=== PATIENT | male | born 1955 | race Caucasian/White ===

== ENCOUNTER 2017-11-12 11:31 | Outpatient (REF) | payer MEDICAID, SELFPAY ==
[2017-11-12 20:51] LABS: TSH 1.35 uIU/mL (0.358-3.74)
== END 2017-11-12 11:32 ==
LOC: NCHCN 11:31
PROVIDERS: Visit Provider Physician Assistant Medical
DX: F32.9 Major depressive disorder, single episode, unspecified (principal)
CPT/HCPCS: 84443

== ENCOUNTER 2018-02-04 11:04 | Outpatient (REF) | payer MEDICAID, SELFPAY ==
[2018-02-04 21:02] LABS: ALT 34 U/L (12-78); AST 20 U/L (15-37); Albumin 4.1 g/dL (3.4-5.0); Alkaline Phosphatase 56 U/L (46-116); Anion Gap 8.1 mmol/L (3-11); BUN 12 mg/dL (7-18); Bilirubin, Total 0.7 mg/dL (0.2-1.0); CO2 27.9 mmol/L (21.0-32.0); CREATININE 0.76 mg/dL (0.70-1.30); Calcium 9.2 mg/dL (8.5-10.1); Chloride 99 mmol/L (98-107); Glucose 92 mg/dL (70-100); Potassium 4.6 mmol/L (3.5-5.1); Sodium 135 mmol/L (136-145); Total Protein 7.6 g/dL (6.4-8.2)
== END 2018-02-04 11:24 ==
LOC: NCHCN 11:04
PROVIDERS: PCP Physician Assistant Medical; Visit Provider Physician Assistant Medical
DX: I10 Essential (primary) hypertension (principal); F10.10 Alcohol abuse, uncomplicated
CPT/HCPCS: 80053

== ENCOUNTER 2020-01-21 19:16 | Outpatient (REF) | payer OTHER, MEDICAID, SELFPAY ==
[2020-01-21 19:59] LABS: Abs Immature Grans 0.14 10^3/uL (0.0-0.06); Absolute Basophil Count 0.08 10^3/uL (0.0-0.2); Absolute Lymphocyte Count 2.46 10^3/uL (1.2-3.4); Absolute Monocyte Count 1.17 10^3/uL (0.1-0.8); Absolute Neutrophil Count 9.47 10^3/uL (1.2-6.7); Basophils % 0.6; Eosinophils % 3.6; HCT 46.6 % (40.0-50.0); HGB 16.1 g/dL (13.5-17.5); Lymphocytes % 17.8; MCH 32.4 pg (27.0-33.0); MCHC 34.5 % (32.0-36.0); MCV 93.8 fL (80-95); Monocytes % 8.5; Neutrophils % 68.5; Nucleated RBC 0 %; Platelet Count 227 10^3/uL (130-400); RBC 4.97 10^6/uL (4.36-5.78); RDW 12.8 % (11.8-14.1); RDW-SD 43.8 fL; WBC 13.82 10^3/uL (4.4-10.8)
[2020-01-21 20:27] LABS: ALT 32 U/L (16-63); AST 17 U/L (15-37); Alkaline Phosphatase 54 U/L (46-116); Anion Gap 10.5 mmol/L (3-11); BUN 12 mg/dL (7-18); Bilirubin, Total 0.4 mg/dL (0.2-1.0); CO2 25.5 mmol/L (21.0-32.0); CREATININE 0.92 mg/dL (0.70-1.30); Calcium 9.4 mg/dL (8.5-10.1); Calculated LDL 62 mg/dL (<100); Chloride 98 mmol/L (98-107); Cholesterol 133 mg/dL (<200); Glucose 88 mg/dL (74-106); HDL Cholesterol 45 mg/dL (40-60); Potassium 4.6 mmol/L (3.5-5.1); Sodium 134 mmol/L (136-145); TSH (W/Ref FT4) 1.76 uIU/mL (0.36-3.74); Total Protein 7.7 g/dL (6.4-8.2); Triglyceride 130 mg/dL (<150)
[2020-01-26 16:22] LABS: PSA, Screening 0.9 ng/mL (0-4.5)
== END 2020-01-21 19:36 ==
LOC: NCHCN 19:16
PROVIDERS: PCP Physician Assistant Medical; Visit Provider Physician Assistant
DX: E78.5 Hyperlipidemia, unspecified (principal); I25.10 Atherosclerotic heart disease of native coronary artery without angina pectoris; I10 Essential (primary) hypertension; F17.210 Nicotine dependence, cigarettes, uncomplicated; R20.0 Anesthesia of skin; Z12.5 Encounter for screening for malignant neoplasm of prostate
CPT/HCPCS: 80053; 80061; 84153; 84443; 85025

== ENCOUNTER 2020-12-28 11:38 | Outpatient (REF) | payer OTHER, MEDICAID, SELFPAY ==
--- OUTSIDE RECORDS SUMMARY | 2020-12-28 11:46 | XMS_ITS ---
:1955 Author Care Team Providers Name Role Phone EMELINA HAUSER General Surgeon [phone] ORA SUMMERS Primary Care Provider [phone] Allergies Code Code System Name Reaction Severity Status Onset Penicillins ? ? Active ? Medications Name Status Start Date Stop Date ? ? aspirin 325 mg tablet Active ? Not availa ble Take 1 tablet every day by oral route. aspirin 81 mg tablet,delayed release Completed ? 04/15/2018 Take 1 tablet every day by oral route. atenolol 25 mg tablet Active ? Not availa ble atorvastatin 80 mg tablet Active ? Not av ailable citalopram 40 mg tablet Active ? Not avai lable Fish Oil 1,000 mg (120 mg-180 mg) capsule Active ? Not available Take 2 capsules every day by oral route. lisinopril Active ? Not available 5 mg tab daily lisinopril 5 mg tablet Active ? Not avail able multivitamin Active ? Not available 1 tab daily nicotine 21 mg/24 hr daily transdermal Active ? Not available patch Nitrostat 0.4 mg sublingual tablet Active ? Not available PLACE 1 TABLET (0.4 MG) BY SUBLINGUAL R OUTE EVERY 5 MINUTES NEEDEDFOR CHEST PAIN. DO NOT EXCEED 3 DOSES IN 15 MINUTES. Problems Name Status Onset Date Source ? Polyp of Colon Active ? History Hyperlipidemia Active ? History Nicotine Dependence Active ? History Depressive Disorder Active ? History Hypertensive Disorder Active ? History Acute Myocardial Infarction Active ? 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 H istory Adult Health Examination Active ? History Atherosclerosis of Coronary Artery without Active ? 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 History Procedures Date Name Performed by ? 04/17/2018 Colonoscopy Information not avai lable Notes: polyps x3 09/05/2007 Cardiac Surgery Information not avai lable Notes: cardiac cath Results Lab Results Date Name Specimen Result Interpretation Description Value Range Status Address ? 04/17/2018 Pathology TISS - Report results ? [facility] ([facility] : [address] Past Encounters 09/30/2019 [facility]: [address] [facility] [address], [address], [place] [address], Ph. Social History Tobacco Smoking Status Light Tobacco Smoker (1 pack Notes: a pack and a half per week) Vaccine List None recorded. Plan of Care Reminders Provider Appointments None ? ? recorded. Lab None ? ? recorded. Referral None ? ? recorded. Procedures None ? ? recorded. Surgeries None ? ? recorded. Imaging None ? ? recorded. Vitals 09/30/2019 01:00PM Consult 30 Height Weight BMI Blood Pressure 180.34 cm 107.05 kg 32.9 kg/m2 118/74 mm[Hg] 02/04/2018 Height Weight BMI Blood Pressure 176.53 cm 106.59 kg 34.2 kg/m2 128/80 mm[Hg]
[2020-12-28 18:59] LABS: Anion Gap 5.8 mmol/L (3-11); BUN 13 mg/dL (7-18); CO2 29.2 mmol/L (21.0-32.0); CREATININE 0.9 mg/dL (0.70-1.30); Chloride 104 mmol/L (98-107); Glucose 103 mg/dL (74-106); Sodium 139 mmol/L (136-145)
== END 2020-12-28 11:39 | disposition home or self-care (01) ==
LOC: NCHCN 11:38
PROVIDERS: PCP Physician Assistant Medical; Visit Provider Physician Assistant
DX: I10 Essential (primary) hypertension (principal)
CPT/HCPCS: 80048

== ENCOUNTER 2021-12-18 13:25 | Outpatient (REF) | payer MEDICARE, SELFPAY ==
[2021-12-18 19:38] LABS: ALT 30 U/L (16-63); AST 21 U/L (15-37); Albumin 3.7 g/dL (3.4-5.0); Alkaline Phosphatase 56 U/L (46-116); Anion Gap 8.8 mmol/L (3-11); BUN 14 mg/dL (7-18); Bilirubin, Total 0.5 mg/dL (0.2-1.0); CO2 25.2 mmol/L (21.0-32.0); CREATININE 0.9 mg/dL (0.70-1.30); Calcium 9.2 mg/dL (8.5-10.1); Chloride 101 mmol/L (98-107); Estimated GFR 93.61 (mL/min/1.73m2); Glucose 114 mg/dL (74-106); Potassium 4.7 mmol/L (3.5-5.1); Sodium 135 mmol/L (136-145); Total Protein 7.6 g/dL (6.4-8.2)
[2021-12-20 09:40] LABS: Hepatitis C Ab w Rflx HCV PCR Negative (Negative)
== END 2021-12-18 13:26 | disposition home or self-care (01) ==
LOC: NCHCN 13:25
PROVIDERS: PCP Physician Assistant Medical; Visit Provider Physician Assistant
DX: I10 Essential (primary) hypertension (principal); G47.30 Sleep apnea, unspecified; Z11.59 Encounter for screening for other viral diseases; Z00.00 Encounter for general adult medical examination without abnormal findings
CPT/HCPCS: 80053; 86803

== ENCOUNTER 2023-01-07 19:01 | Outpatient (REF) | payer OTHER, SELFPAY ==
[2023-01-07 19:05] LABS: ALT 31 U/L (16-63); AST 18 U/L (15-37); Albumin 3.9 g/dL (3.4-5.0); Alkaline Phosphatase 60 U/L (46-116); Anion Gap 9.5 mmol/L (3-11); BUN 11 mg/dL (7-18); Bilirubin, Total 0.5 mg/dL (0.2-1.0); CO2 27.5 mmol/L (21.0-32.0); CREATININE 0.9 mg/dL (0.70-1.30); Calcium 9.6 mg/dL (8.5-10.1); Chloride 100 mmol/L (98-107); Estimated GFR 93.03 (mL/min/1.73m2); Glucose 129 mg/dL (74-106); Potassium 4.2 mmol/L (3.5-5.1); Sodium 137 mmol/L (136-145); TSH (W/Ref FT4) 1.98 uIU/mL (0.36-3.74); Total Protein 8.2 g/dL (6.4-8.2)
[2023-01-08 19:54] LABS: PSA, Screening 0.7 ng/mL (<=4.5)
== END 2023-01-07 19:02 | disposition home or self-care (01) ==
LOC: NCHCN 19:01
PROVIDERS: PCP Physician Assistant Medical; Visit Provider Physician Assistant
DX: I10 Essential (primary) hypertension (principal); I25.10 Atherosclerotic heart disease of native coronary artery without angina pectoris; F32.89 Other specified depressive episodes; Z12.5 Encounter for screening for malignant neoplasm of prostate
CPT/HCPCS: 80053; 84153; 84443

== ENCOUNTER 2023-12-22 12:49 | Outpatient (REF) | payer MEDICARE, SELFPAY ==
[2023-12-22 19:41] LABS: ALT 27 U/L (16-63); AST 21 U/L (15-37); Albumin 3.8 g/dL (3.4-5.0); Alkaline Phosphatase 60 U/L (46-116); Anion Gap 7.1 mmol/L (3-11); BUN 14 mg/dL (7-18); Bilirubin, Total 0.52 mg/dL (0.2-1.0); CO2 27.9 mmol/L (21.0-32.0); Calcium 9.4 mg/dL (8.5-10.1); Calculated LDL 67 mg/dL (<100); Chloride 102 mmol/L (98-107); Cholesterol 146 mg/dL (<200); Estimated GFR 81.47 (mL/min/1.73m2); Glucose 109 mg/dL (74-106); HDL Cholesterol 47 mg/dL (40-60); Potassium 4.8 mmol/L (3.5-5.1); Sodium 137 mmol/L (136-145); Total Protein 7.8 g/dL (6.4-8.2); Triglyceride 164 mg/dL (<150)
[2023-12-22 20:20] LABS: Hemoglobin A1C 5.3 % (<5.7)
== END 2023-12-22 12:50 | disposition home or self-care (01) ==
LOC: NCHCN 12:49
PROVIDERS: PCP Physician Assistant Medical; Visit Provider Physician Assistant
DX: E66.9 Obesity, unspecified (principal)
CPT/HCPCS: 80053; 80061; 83036

== ENCOUNTER 2024-12-28 08:36 | Outpatient (REF) | payer MEDICARE, SELFPAY ==
[2024-12-28 19:29] LABS: HCT 46.6 % (40.0-50.0); HGB 15.8 g/dL (13.5-17.5); MCH 30.9 pg (27.0-33.0); MCHC 33.9 % (32.0-36.0); MCV 91 fL (80-95); MPV 10.1 fL (8.0-11.0); Platelet Count 201 10^3/uL (130-400); RBC 5.11 10^6/uL (4.36-5.78); RDW 13.5 % (11.8-14.1); RDW-SD 45.5 fL; WBC 12.99 10^3/uL (4.4-10.8)
[2024-12-28 19:38] LABS: ALT 26 U/L (16-63); AST 18 U/L (15-37); Albumin 3.6 g/dL (3.4-5.0); Alkaline Phosphatase 57 U/L (46-116); Anion Gap 8.7 mmol/L (3-11); BUN 13 mg/dL (7-18); Bilirubin, Total 0.6 mg/dL (0.2-1.0); CO2 26.3 mmol/L (21.0-32.0); Calcium 8.9 mg/dL (8.5-10.1); Calculated LDL 60 mg/dL (<100); Chloride 105 mmol/L (98-107); Cholesterol 127 mg/dL (<200); Estimated GFR 95.21 (mL/min/1.73m2); Glucose 106 mg/dL (74-106); HDL Cholesterol 50 mg/dL (>or=40); Potassium 4.8 mmol/L (3.5-5.1); Sodium 140 mmol/L (136-145); Total Protein 7.9 g/dL (6.4-8.2); Triglyceride 88 mg/dL (<150)
[2024-12-29 19:07] LABS: PSA, Screening 1.7 ng/mL (<=6.5)
== END 2024-12-28 08:37 | disposition home or self-care (01) ==
LOC: NCHCN 08:36
PROVIDERS: PCP Physician Assistant Medical; Visit Provider Physician Assistant
DX: I10 Essential (primary) hypertension (principal); N52.9 Male erectile dysfunction, unspecified
CPT/HCPCS: 80053; 80061; 84153; 85027